=== PATIENT | male | born 1985 | race Two or more races ===

== ENCOUNTER 2023-01-21 07:59 | Emergency (ER) | payer OTHER ==
[~2023-01-21] VITALS: Ht 175.3 cm; Wt 86.2 kg
== END 2023-01-21 12:23 | disposition home or self-care (01) ==
LOC: ER 07:59
DX: M54.89 Other dorsalgia (principal); Z91.013 Allergy to seafood; Z91.041 Radiographic dye allergy status; M62.838 Other muscle spasm